=== PATIENT | male | born 2005 | race Caucasian/White ===

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

== ENCOUNTER 2025-01-10 18:50 | Emergency (ER) | payer SELFPAY ==
[2025-01-10 18:58] VITALS: BP 131/91; PULSE 84; RESP 18; TEMP 36.6; O2SAT 98; BMI 19.5
--- OUTSIDE RECORDS SUMMARY | 2025-01-10 19:01 | XMS_ITS | Encounter Summary ---
Author Organization [facility] Address [address] [place] [address] Care Team Providers Care Labor Crew Supervisor Name Role Phone Charu Woods MD Primary Care Provider +1- [phone] Encounter Details Date Type Department Care Team (Latest Contact Info) Description 2005 Outpatient Historical [facility] Medicine- [address] [phone] Perez Layton MD [address] [place] [address] Candidiasis of Mouth (Primary Dx) Social History Tobacco Use Types Packs/Day Years Used Date Smoking Tobacco: Never Assessed Sex and Gender Information Value Date Recorded Sex Assigned at Not on file Legal Sex Male 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
--- OUTSIDE RECORDS SUMMARY | 2025-01-10 19:01 | XMS_ITS | Encounter Summary ---
Author Organization [facility] Address [address] [place] [address] Care Team Providers Care Forming Machine Tender Name Role Phone Charu Woods MD Primary Care Provider +1- [phone] Encounter Details Date Type Department Care Team (Latest Contact Info) Description 2005 Outpatient Historical [facility] Medicine- [address] [phone] Abigail Reyes MD [address] [place] [address] Routine child health exam (Primary Dx) Social History Tobacco Use Types Packs/Day Years Used Date Smoking Tobacco: Never Assessed Sex and Gender Information Value Date Recorded Sex Assigned at Not on file Legal Sex Male 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
--- OUTSIDE RECORDS SUMMARY | 2025-01-10 19:01 | XMS_ITS | Encounter Summary ---
Author Organization [facility] Address [address] [place] [address] Care Team Providers Care Air Moving Technician Name Role Phone Charu Woods MD Primary Care Provider +1- [phone] Encounter Details Date Type Department Care Team (Latest Contact Info) Description 2005 Outpatient Historical [facility] Medicine- [address] [phone] Perez Layton MD [address] [place] [address] Routine Child Health Exam (Primary Dx) Social History Tobacco Use Types Packs/Day Years Used Date Smoking Tobacco: Never Assessed Sex and Gender Information Value Date Recorded Sex Assigned at Not on file Legal Sex Male 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
--- OUTSIDE RECORDS SUMMARY | 2025-01-10 19:01 | XMS_ITS | Encounter Summary ---
Author Organization [facility] Address [address] [place] [address] Care Team Providers Care Early Childhood Teacher Name Role Phone Charu Woods MD Primary Care Provider +1- [phone] Encounter Details Date Type Department Care Team (Latest Contact Info) Description 05/28/2006 Outpatient Historical [facility] Medicine- [address] [phone] Perez Layton MD [address] [place] [address] Pneumonia, Organism Unspecified (Primary Dx) Social History Tobacco Use Types Packs/Day Years Used Date Smoking Tobacco: Never Assessed Sex and Gender Information Value Date Recorded Sex Assigned at Not on file 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
--- OUTSIDE RECORDS SUMMARY | 2025-01-10 19:01 | XMS_ITS | Encounter Summary ---
Author Organization [facility] Address [address] [place] [address] Care Team Providers Care Electrotype Finisher Name Role Phone Charu Woods MD Primary Care Provider +1- [phone] Encounter Details Date Type Department Care Team (Latest Contact Info) Description 2005 Outpatient Historical 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
--- OUTSIDE RECORDS SUMMARY | 2025-01-10 19:01 | XMS_ITS | Encounter Summary ---
Author Organization [facility] Address [address] 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
--- OUTSIDE RECORDS SUMMARY | 2025-01-10 19:01 | XMS_ITS | Encounter Summary ---
Author Organization [facility] Address [address] [place] [address] Care Team Providers Care Fast Food Cook Name Role Phone Charu Woods MD Primary Care Provider +1- [phone] Encounter Details Date Type Department Care Team (Latest Contact Info) Description 03/27/2006 Outpatient Historical [facility] Orthopedics- 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
--- OUTSIDE RECORDS SUMMARY | 2025-01-10 19:01 | XMS_ITS | Encounter Summary ---
Author Organization [facility] Address [address] [place] [address] Care Team Providers Care Conservation Educator Name Role Phone Charu Woods MD Primary Care Provider +1- [phone] Encounter Details Date Type Department Care Team (Late st Contact Info) Description 2005 Inpatient Historical [facility] Yandel Portillo, DO [address] [place] [address] / JAUND NOS (Primary Dx) Social History Tobacco Use Types Packs/Day Years Used Date Smoking Tobacco: Never Assessed Sex and Gender Information Value Date Recorded Sex Assigned at Not on file Legal Sex Male 4:15 AM ROD PULLER Gender Identity Not on file Sexual Orientation Not on file documented as of this encounter Plan of Treatment Not on file documented as of this encounter Procedures Procedure Name Priority Date/Time Associated Diagnosis Comments DIFFERENTIAL, MANUAL Routine 2005 7:17 PM ROD PULLER CBC WITH DIFFERENTIAL Routine 2005 7:17 PM ROD PULLER RETICULOCYTES Routine 2005 7:17 PM ROD PULLER DIFFERENTIAL, MANUAL Routine 2005 6:12 AM ROD PULLER CBC WITH DIFFERENTIAL Routine 2005 6:12 AM ROD PULLER COMPREHENSIVE METABOLIC PANEL Routine 2005 6:12 AM ROD PULLER HEMOGLOBIN AND HEMATOCRIT Routine 2005 6:29 PM ROD PULLER HEMOGLOBIN AND HEMATOCRIT Routine 2005 12:20 PM ROD PULLER G6PD QUALITATIVE Routine 2005 12:2 0 PM ROD PULLER DIFFERENTIAL, MANUAL Routine 2005 3:37 AM ROD PULLER CBC WITH DIFFERENTIAL Routine 2005 3:37 AM ROD PULLER COMPREHENSIVE METABOLIC PANEL Routine 2005 3:37 AM ROD PULLER documented in this encounter Results * (ABNORMAL) RETICULOCYTES (2005 7:17 PM ROD PULLER) RETICULOCYTES 2.8(H) 0.5 - 1.5 % INTERFACE SYSTEM 2005 7:17 PM ROD PULLER us Oralia Major MD HEMATOLOGY ORDERABLES Final Result Performing Organization Address [facility] Co de Phone Number INTERFACE SYSTEM Refer to clinic/hospital department * (ABNORMAL) DIFFERENTIAL, MANUAL (2005 7:17 PM ROD PULLER) NEUTROPHILS, SEG 29 15 - 35 % INT ERFACE SYSTEM BANDS 4(L) 6 - 15 % INTERFACE SYSTEM LYMPHOCYTES 46 43 - 53 % INTERFAC E SYSTEM Comment:FEW REACTIVE LYMPHS MONOCYTE 9 8 - 9 % INTERFACE SYSTEM EOSINOPHILS 7(H) 0 - 3 % INTERFAC E SYSTEM MYELOCYTES 5(H) <=1 % INTERFACE SYSTEM ANISOCYTOSIS 1+(A) None Seen INTERFA CE SYSTEM SMUDGE CELLS Few(A) None Seen INTERFA CE SYSTEM PLATELET EST. Normal Normal INTERF P[place] SYSTEM RBC MORPHOLOGY Abnormal(A ) Normal INTERFACE SYSTEM 2005 7:17 PM ROD PULLER us Oralia Major MD HEMATOLOGY ORDERABLES COM F inal Result Performing Organization Address City/[facility]/ZIP Co de Phone Number INTERFACE SYSTEM Refer to clinic/hospital department * (ABNORMAL) CBC WITH DIFFERENTIAL (2005 7:17 PM ROD PULLER) WBC 21.9 9.4 - 34.0 K/ul INTERFACE SYSTEM RBC 3.92 3.60 - 6.60 Mil/ul INTERFACE SYSTEM HEMOGLOBIN 14.0(L) 14.2 - 17.2 g/dL INTERFACE SYSTEM HEMATOCRIT 39.1(L) 47.0 - 57.0 % INTER FACE SYSTEM MCV 99.7 95.0 - 118.0 Fl INTERFACE SYSTEM MCH 35.7 31.0 - 37.0 pg INTERFACE SYSTEM MCHC 35.8 31.0 - 37.0 g/dL INTERFACE SYSTEM RDW 14.3 11.0 - 14.5 % INTERF POPEYE SYSTEM PLATELETS 371 140 - 440 K/ul INTERFACE SYSTEM MPV 10.8 8.9 - 12.8 Fl INTERF POPEYE SYSTEM HEM COMMENT Smear Reviewed Automated Diff INTERFACE SYSTEM Comment: ACCURACY MAY BE AFFECTED DUE TO PLATELET CLUMPS SEEN ON SMEAR--NO CLOT WAS DETECTED IN SAMPLE. RN GERARDO WAS NOTIFIED.SS 2005 7:17 PM ROD PULLER Oralia Major MD HEMATOLOGY ORDERABLES Final Result Performing Organization Address [facility] de Phone Number INTERFACE SYSTEM Refer to clinic/hospital department * (ABNORMAL) DIFFERENTIAL, MANUAL (2005 6:12 AM ROD PULLER) NEUTROPHILS, SEG 39(H) 15 - 35 % INT ERFACE SYSTEM BANDS 1(L) 6 - 15 % INTERFACE SYSTEM LYMPHOCYTES 43 43 - 53 % INTERFAC E SYSTEM MONOCYTE 7(L) 8 - 9 % INTERFACE SYSTEM EOSINOPHILS 9(H) 0 - 3 % INTERFAC E SYSTEM BASOPHILS 1 0 - 1 % INTERFACE SYSTEM PLATELET EST. Normal Normal INTERF [place]YE SYSTEM RBC MORPHOLOGY Normal Normal INTER FACE SYSTEM 2005 6:12 AM ROD PULLER us Yandel Portillo DO HEMATOLOGY ORDERABLES COM Final Result Performing Organization Address [facility] Co de Phone Number INTERFACE SYSTEM Refer to clinic/hospital department * (ABNORMAL) CBC WITH DIFFERENTIAL (2005 6:12 AM ROD PULLER) WBC 13.8 9.4 - 34.0 K/ul INTERFACE SYSTEM RBC 4.12 3.60 - 6.60 Mil/ul INTERFACE SYSTEM HEMOGLOBIN 15.0 14.2 - 17.2 g/dL INTERFACE SYSTEM HEMATOCRIT 42.4(L) 47.0 - 57.0 % INTERFACE SYSTEM MCV 102.9 95.0 - 118.0 Fl INTERFACE SYSTEM MCH 36.4 31.0 - 37.0 pg INTERFACE SYSTEM MCHC 35.4 31.0 - 37.0 g/dL INTERFACE SYSTEM RDW 15.1(H) 11.0 - 14.5 % INTERFACE SYSTEM PLATELETS 239 140 - 440 K/ul INTERFACE SYSTEM MPV 10.7 8.9 - 12.8 Fl INTERFACE SYSTEM 2005 6:12 AM ROD PULLER Yandel Portillo DO HEMATOLOGY ORDERABLES Final Res ult INTERFACE SYSTEM Refer to clinic/hospital department * (ABNORMAL) COMPREHENSIVE METABOLIC PANEL (2005 6:12 AM ROD PULLER) GLUCOSE 101(H) 50 - 80 mg/dL INTERFACE SYSTEM BUN 4(L) 9 - 20 mg/dL INTERFACE SYSTEM CREATININE 0.4 0.2 - 0.7 mg/dL INTERFACE SYSTEM SODIUM 138 136 - 145 mEq/L INTERFACE SYSTEM POTASSIUM 4.5 3.5 - 5.0 mEq/L INTERFACE SYSTEM Comment:Specimen slightly he molyzed CO2 23 22 - 32 mmol/l INTERFACE SYSTEM CHLORIDE 111(H) 95 - 110 mEq/L INTERFACE SYSTEM CALCIUM 9.4 8.4 - 10.5 mg/dL INTERFACE SYSTEM ALKALINE PHOSPHATASE 94 46 - 321 IU/L INTERFACE SYSTEM TOTAL PROTEIN 5.8(L) 6.3 - 8.2 g/dL INTERFACE SYSTEM ALBUMIN 2.9(L) 3.5 - 5.0 g/dL INTERFACE SYSTEM AST 67(H) 17 - 59 IU/L INTERFACE SYSTEM ALT 18(L) 21 - 72 IU/L INTERFACE SYSTEM BILIRUBIN TOTAL 17.1(H) 0.6 - 11.0 mg/dL INTERFACE SYSTEM GLOBULIN (CALC) 2.9 2.4 - 3.9 g/dL INTERFACE SYSTEM ANION GAP 9 9 - 20 mEq/L INTERFACE SYSTEM ALBUMIN/GLOBULIN RATIO 1.0 1.0 - 2.3 INTERFACE SYSTEM OSMOLALITY, CALCULATED 282 275 - 295 mOsm/Kg INTERFACE SYSTEM 2005 6:12 AM ROD PULLER us Yandel Portillo DO CHEMISTRY ORDERABLES Final Resu lt Performing Organization Address [facility] Phone Number INTERFACE SYSTEM Refer to clinic/hospital department * (ABNORMAL) HEMOGLOBIN AND HEMATOCRIT (2005 6:29 PM ROD PULLER) HEMOGLOBIN 15.6 14.2 - 17.2 g/dL INTERFACE SYSTEM HEMATOCRIT 43.4(L) 47.0 - 57.0 % INTERFACE SYSTEM 2005 6:29 PM ROD PULLER us Yandel Portillo DO HEMATOLOGY ORDERABLES Final Res ult Performing Organization Address [facility] Phone Number INTERFACE SYSTEM Refer to clinic/hospital department * G6PD QUALITATIVE (2005 12:20 PM ROD PULLER) G6PD QUAL Normal INTERFACE SYSTEM 2005 12:2 0 PM ROD PULLER us Yandel Portillo DO CHEMISTRY ORDERABLES COM Final Result Performing Organization Address [facility] Phone Number INTERFACE SYSTEM Refer to clinic/hospital department * (ABNORMAL) HEMOGLOBIN AND HEMATOCRIT (2005 12:20 PM ROD PULLER) HEMOGLOBIN 15.5 14.2 - 17.2 g/dL INTERFACE SYSTEM HEMATOCRIT 42.8(L) 47.0 - 57.0 % INTERFACE SYSTEM 2005 12:2 0 PM ROD PULLER us Yandel Portillo DO HEMATOLOGY ORDERABLES Final Res ult Performing Organization Address [facility] Phone Number INTERFACE SYSTEM Refer to clinic/hospital department * (ABNORMAL) COMPREHENSIVE METABOLIC PANEL (2005 3:37 AM ROD PULLER) GLUCOSE 111(H) 50 - 80 mg/dL INTERFACE SYSTEM BUN 8(L) 9 - 20 mg/dL INTERFACE SYSTEM CREATININE 0.5 0.2 - 0.7 mg/dL INTERFACE SYSTEM SODIUM 139 136 - 145 mEq/L INTERFACE SYSTEM POTASSIUM 3.9 3.5 - 5.0 mEq/L INTERFACE SYSTEM Comment:Specimen slightly he molyzed CO2 23 22 - 32 mmol/l INTERFACE SYSTEM CHLORIDE 109 95 - 110 mEq/L INTERFACE SYSTEM CALCIUM 9.6 8.4 - 10.5 mg/dL INTERFACE SYSTEM ALKALINE PHOSPHATASE 102 46 - 321 IU/L INTERFACE SYSTEM TOTAL PROTEIN 6.1(L) 6.3 - 8.2 g/dL INTERFACE SYSTEM ALBUMIN 3.1(L) 3.5 - 5.0 g/dL INTERFACE SYSTEM AST 58 17 - 59 IU/L INTERFACE SYSTEM ALT 22 21 - 72 IU/L INTERFACE SYSTEM BILIRUBIN TOTAL 21.2(H) 0.6 - 11.0 mg/dL INTERFACE SYSTEM GLOBULIN (CALC) 3.0 2.4 - 3.9 g/dL INTERFACE SYSTEM ANION GAP 11 9 - 20 mEq/L INTERFACE SYSTEM ALBUMIN/GLOBULIN RATIO 1.0 1.0 - 2.3 INTERFACE SYSTEM OSMOLALITY, CALCULATED 285 275 - 295 mOsm/Kg INTERFACE SYSTEM 2005 3:37 AM ROD PULLER us Yandel Portillo DO CHEMISTRY ORDERABLES Final Resu lt Performing Organization Address [facility] Phone Number INTERFACE SYSTEM Refer to clinic/hospital department * (ABNORMAL) DIFFERENTIAL, MANUAL (2005 3:37 AM ROD PULLER) NEUTROPHILS, SEG 43(H) 15 - 35 % INT ERFACE SYSTEM BANDS 2(L) 6 - 15 % INTERFACE SYSTEM LYMPHOCYTES 36(L) 43 - 53 % INTERFAC E SYSTEM ATYPICAL LYMPHOCYTE 5(H) <=0 % INTERFACE SYSTEM MONOCYTE 9 8 - 9 % INTERFACE SYSTEM EOSINOPHILS 5(H) 0 - 3 % INTERFAC E SYSTEM PLATELET EST. Normal Normal INTERF [place]YE SYSTEM RBC MORPHOLOGY Normal Normal INTER FACE SYSTEM POLYCHROMASIA 1+(A) None Seen INTERF POPEYE SYSTEM 2005 3:37 AM ROD PULLER us Yandel Portillo DO HEMATOLOGY ORDERABLES COM Final Result Performing Organization Address [facility] Phone Number INTERFACE SYSTEM Refer to clinic/hospital department * (ABNORMAL) CBC WITH DIFFERENTIAL (2005 3:37 AM ROD PULLER) WBC 11.6 9.4 - 34.0 K/ul INTERFACE SYSTEM Comment: WBC Corrected for Nucleated RBC'S RBC 4.55 3.60 - 6.60 Mil/ul INTERFACE SYSTEM HEMOGLOBIN 16.6 14.2 - 17.2 g/dL INTERFACE SYSTEM HEMATOCRIT 45.8(L) 47.0 - 57.0 % INTERFACE SYSTEM MCV 100.7 95.0 - 118.0 Fl INTERFACE SYSTEM MCH 36.5 31.0 - 37.0 pg INTERFACE SYSTEM MCHC 36.2 31.0 - 37.0 g/dL INTERFACE SYSTEM RDW 15.4(H) 11.0 - 14.5 % INTERFACE SYSTEM PLATELETS 244 140 - 440 K/ul INTERFACE SYSTEM MPV 10.7 8.9 - 12.8 Fl INTERFACE SYSTEM NEUTROPHILS 52.6 42.2 - 75.2 % INTERFACE SYSTEM LYMPHOCYTES 31.8(L) 43.0 - 53.0 % INTERFACE SYSTEM MONOCYTES 9.2(H) 8.0 - 9.0 % INTERFACE SYSTEM EOSINOPHILS 6.1 0.0 - 7.0 % INTERFACE SYSTEM BASOPHILS 0.3 0.0 - 1.0 % INTERFACE SYSTEM NEUTROPHIL ABSOLUTE 6.1 2.0 - 8.0 K/uL INTERFACE SYSTEM LYMPHOCYTE ABSOLUTE 3.7 1.2 - 4.0 K/ul INTERFACE SYSTEM MONOCYTE ABSOLUTE 1.1(H) 0.1 - 0.6 K/ul INTERFACE SYSTEM EOSINOPHIL ABSOLUTE 0.7 0.0 - 0.7 K/ul INTERFACE SYSTEM BASOPHILS ABSOLUTE 0.0 0.0 - 0.2 K/ul INTERFACE SYSTEM NRBC 1 <=1 INTERFACE SYSTEM 2005 3:37 AM ROD PULLER us Yandel Portillo DO HEMATOLOGY ORDERABLES Final Res ult INTERFACE SYSTEM Refer to clinic/hospital department documented in this encounter Visit Diagnoses Diagnosis Unspecified and jaundice- Primary documented in this encounter Care Teams Conservation Educator Relationship Specialty Start Date End Date Charu Woods MD PCP - General Family Practice 02/22/10 documented as of this encounter
--- OUTSIDE RECORDS SUMMARY | 2025-01-10 19:01 | XMS_ITS | Encounter Summary ---
Author Organization [facility] Address [address] [place] [address] Care Team Providers Care Primer And Powder Canning Leader Name Role Phone Charu Woods MD Primary Care Provider +1- [phone] Encounter Details Date Type Department Care Team (Latest Contact Info) Description 03/02/2006 Outpatient Historical [facility] Medicine- [address] [phone] Perez Layton MD [address] [place] [address] Routine Child Health Exam (Primary Dx) Social History Tobacco Use Types Packs/Day Years Used Date Smoking Tobacco: Never Assessed Sex and Gender Information Value Date Recorded Sex Assigned at Not on file Legal Sex Male 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
--- OUTSIDE RECORDS SUMMARY | 2025-01-10 19:01 | XMS_ITS | Encounter Summary ---
Author Organization [facility] Address [address] [place] [address] Care Team Providers Care Flower Machine Operator Name Role Phone Charu Woods MD Primary Care Provider +1- [phone] Encounter Details Date Type Department Care Team (Latest Contact Info) Description 02/05/2006 Outpatient Historical [facility] Medicine- [address] [phone] Perez Layton MD [address] [place] [address] Acute Upper Respiratory Infections of Unspecified Site (Primary Dx) Social History Tobacco Use Types Packs/Day Years Used Date Smoking Tobacco: Never Assessed Sex and Gender Information Value Date Recorded Sex Assigned at Not on file Legal Sex Male 4:15 AM REMEDIATION CONSULTANT Gender Identity Not on file Sexual Orientation Not on file documented as of this encounter Plan of Treatment Not on file documented as of this encounter Visit Diagnoses Diagnosis Acute upper respiratory infections of unspecified site- Primary documented in this encounter Care Teams Flower Machine Operator Relationship Specialty Start Date End Date Charu Woods MD PCP - General Family Practice 02/22/10 documented as of this encounter
--- OUTSIDE RECORDS SUMMARY | 2025-01-10 19:01 | XMS_ITS | Encounter Summary ---
Author Organization [facility] Address [address] [place] [address] Care Team Providers Care Engineering Job Titles Name Role Phone Charu Woods MD Primary Care Provider +1- [phone] Encounter Details Date Type Department Care Team (Latest Contact Info) Description 2005 Outpatient Historical [facility] Medicine- [address] [phone] Perez Layton MD [address] [place] [address] Routine Child Health Exam (Primary Dx) Social History Tobacco Use Types Packs/Day Years Used Date Smoking Tobacco: Never Assessed Sex and Gender Information Value Date Recorded Sex Assigned at Not on file Legal Sex Male 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
--- OUTSIDE RECORDS SUMMARY | 2025-01-10 19:01 | XMS_ITS | Encounter Summary ---
Author Organization [facility] Address [address] [place] [address] Care Team Providers Care Vulcanizer Name Role Phone Charu Woods MD Primary Care Provider +1- [phone] Encounter Details Date Type Department Care Team (Latest Contact Info) Description 2005 Outpatient Historical [facility] Medicine- [address] [phone] Abigail Reyes MD [address] [place] [address] JAUNDICE NOS (Primary Dx) Social History Tobacco Use Types Packs/Day Years Used Date Smoking Tobacco: Never Assessed Sex and Gender Information Value Date Recorded Sex Assigned at Not on file Legal Sex Male 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
--- OUTSIDE RECORDS SUMMARY | 2025-01-10 19:01 | XMS_ITS | Encounter Summary ---
Author Organization [facility] Address [address] [place] [address] Care Team Providers Care Storekeeper Steward Name Role Phone Charu Woods MD Primary Care Provider +1- [phone] Encounter Details Date Type Department Care Team (Latest Contact Info) Description 06/21/2006 Outpatient Historical [facility] Medicine- [place] [address] [place] [address] Keena Layton MD [address] [place] [address] Acute Upper Respiratory Infections of Unspecified Site (Primary Dx) Social History Tobacco Use Types Packs/Day Years Used Date Smoking Tobacco: Never Assessed Sex and Gender Information Value Date Recorded Sex Assigned at Not on file Legal Sex Male 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
--- OUTSIDE RECORDS SUMMARY | 2025-01-10 19:01 | XMS_ITS | Encounter Summary ---
Author Organization [facility] Address [address] [place] [address] Care Team Providers Care Roll Tester Name Role Phone Charu Woods MD Primary Care Provider +1- [phone] Encounter Details Date Type Department Care Team (Latest Contact Info) Description 03/12/2006 Outpatient Historical [facility] Medicine- [address] [place] [phone] Perez Layton MD [address] [place] [address] Other and Unspecified Noninfectious Gastroenteritis and Colitis (Primary Dx) Social History Tobacco Use Types Packs/Day Years Used Date Smoking Tobacco: Never Assessed Sex and Gender Information Value Date Recorded Sex Assigned at Not on file Legal Sex Male 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
--- OUTSIDE RECORDS SUMMARY | 2025-01-10 19:01 | XMS_ITS | Encounter Summary ---
Author Organization [facility] Address [address] [place] [address] Care Team Providers Care Clinical Dermatologist Name Role Phone Charu Woods MD Primary Care Provider +1- [phone] Encounter Details Date Type Department Care Team (Latest Contact Info) Description 05/30/[address] 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
--- OUTSIDE RECORDS SUMMARY | 2025-01-10 19:01 | XMS_ITS | Encounter Summary ---
Author Organization [facility] Address [address] [place] [address] Care Team Providers Care Truck Service Manager Name Role Phone Charu Woods MD Primary Care Provider +1- [phone] Encounter Details Date Type Department Care Team (Latest Contact Info) Description 2005 Outpatient Historical [facility] Medicine- [address] [phone] Abigail Reyse MD [address] [place] [address] Routine Child Health Exam (Primary Dx) Social History Tobacco Use Types Packs/Day Years Used Date Smoking Tobacco: Never Assessed Sex and Gender Information Value Date Recorded Sex Assigned at Not on file Legal Sex Male 4:15 AM COMMISSIONING AGENT Gender Identity Not on file Sexual Orientation Not on file documented as of this encounter Plan of Treatment Not on file documented as of this encounter Visit Diagnoses Diagnosis Routine child health exam- Primary Routine infant or child health check documented in this encounter Care Teams Truck Service Manager Relationship Specialty Start Date End Date Charu Woods MD PCP - General Family Practice 02/22/10 documented as of this encounter
--- OUTSIDE RECORDS SUMMARY | 2025-01-10 19:01 | XMS_ITS | Encounter Summary ---
Author Organization [facility] Address [address] [place] [address] Care Team Providers Care Sock Drier Name Role Phone Charu Woods MD Primary Care Provider +1- [phone] Encounter Details Date Type Department Care Team (Latest Contact Info) Description 06/29/2006 Outpatient Historical [facility] Family Medicine- [address] [phone] Perez Layton MD [address] [place] [address] Routine Child Health Exam (Primary Dx) Social History Tobacco Use Types Packs/Day Years Used Date Smoking Tobacco: Never Assessed Sex and Gender Information Value Date Recorded Sex Assigned at Not on file Legal Sex Male 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
--- OUTSIDE RECORDS SUMMARY | 2025-01-10 19:01 | XMS_ITS | Encounter Summary ---
Author Organization [facility] Address [address] [place] [address] Care Team Providers Care Electron Beam Welder Setter Name Role Phone Charu Woods MD Primary Care Provider +1- [phone] Encounter Details Date Type Department Care Team (Latest Contact Info) Description 04/18/2006 Outpatient Historical [facility] Medicine- [address] [phone] Perez Layton MD [address] [place] [address] Acute Upper Respiratory Infections of Unspecified Site (Primary Dx) Social History Tobacco Use Types Packs/Day Years Used Date Smoking Tobacco: Never Assessed Sex and Gender Information Value Date Recorded Sex Assigned at Not on file Legal Sex Male 

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
--- OUTSIDE RECORDS SUMMARY | 2025-01-10 19:02 | XMS_ITS | Encounter Summary ---
Author Organization [facility] Address [address] [place] [address] Care Team Providers Care Turbo Operator Name Role Phone Charu Woods MD Primary Care Provider +1- [phone] Encounter Details Date Type Department Care Team (Latest Contact Info) Description 07/09/2006 Outpatient Historical [facility] Medicine- [address] [phone] Perez Layton MD [address] [place] [address] Acute Bronchiolitis due to Respiratory Syncytial Virus (RSV) (Primary Dx); Hypoxemia Social History Tobacco Use Types Packs/Day Years Used Date Smoking Tobacco: Never Assessed Sex and Gender Information Value Date Recorded Sex Assigned at Not on file Legal Sex Male 4:15 AM GLOBAL MARKETING INTERN Gender Identity Not on file Sexual Orientation Not on file documented as of this encounter Plan of Treatment Not on file documented as of this encounter Visit Diagnoses Diagnosis Acute bronchiolitis due to respiratory syncytial virus (RSV)- Primary Hypoxemia documented in this encounter Care Teams Turbo Operator Relationship Specialty Start Date End Date Charu Woods MD PCP - General Family Practice 02/22/10 documented as of this encounter
--- OUTSIDE RECORDS SUMMARY | 2025-01-10 19:02 | XMS_ITS | Encounter Summary ---
Author Organization [facility] Address [address] [place] [address] Care Team Providers Care Porcelain Enamel Installer Name Role Phone Charu Woods MD Primary Care Provider +1- [phone] Encounter Details Date Type Department Care Team (Latest Contact Info) Description 08/22/2006 Outpatient Historical [facility] Medicine- [address] [phone] Perez Layton MD [address] [place] [address] Acute Upper Respiratory Infections of Unspecified Site (Primary Dx) Social History Tobacco Use Types Packs/Day Years Used Date Smoking Tobacco: Never Assessed Sex and Gender Information Value Date Recorded Sex Assigned at Not on file Legal Sex Male 4:15 AM EXTRUDER OPERATOR HELPER Gender Identity Not on file Sexual Orientation Not on file documented as of this encounter Plan of Treatment Not on file documented as of this encounter Visit Diagnoses Diagnosis Acute upper respiratory infections of unspecified site- Primary documented in this encounter Care Teams Porcelain Enamel Installer Relationship Specialty Start Date End Date Charu Woods MD PCP - General Family Practice 02/22/10 documented as of this encounter
--- OUTSIDE RECORDS SUMMARY | 2025-01-10 19:02 | XMS_ITS | Encounter Summary ---
Author Organization [facility] Address [address] [place] [address] Care Team Providers Care Starch And Prosize Mixer Name Role Phone Charu Woods MD Primary Care Provider +1- [phone] Encounter Details Date Type Department Care Team (Latest Contact Info) Description 07/10/2006 Outpatient Historical [facility] Medicine- [address] [phone] Perez Layton MD [address] [place] [address] Acute Bronchiolitis due to Respiratory Syncytial Virus (RSV) (Primary Dx) Social History Tobacco Use Types Packs/Day Years Used Date Smoking Tobacco: Never Assessed Sex and Gender Information Value Date Recorded Sex Assigned at Not on file Legal Sex Male 4: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
--- OUTSIDE RECORDS SUMMARY | 2025-01-10 19:02 | XMS_ITS | Encounter Summary ---
Author Organization [facility] Address [address] [place] [address] Care Team Providers Care Band And Cuff Cutter Name Role Phone Charu Woods MD Primary Care Provider +1- [phone] Encounter Details Date Type Department Care Team (Late st Contact Info) Description 05/29/2007 Outpatient Historical [facility] Family Medicine- [address] [phone] Perez Layton MD [address] [place] [address] Social History Tobacco Use Types Packs/Day Years Used Date Smoking Tobacco: Never Assessed Sex and Gender Information Value Date Recorded Sex Assigned at Not on file Legal Sex Male 4:15 AM MANAGER CONTROL Gender Identity Not on file Sexual Orientation Not on file documented as of this encounter Plan of Treatment Not on file documented as of this encounter Visit Diagnoses Not on filedocumented in this encounter Care Teams Band And Cuff Cutter Relationship Specialty Start Date End Date Charu Woods MD PCP - General Family Practice 02/22/10 documented as of this encounter
--- OUTSIDE RECORDS SUMMARY | 2025-01-10 19:02 | XMS_ITS | Clinical Summary ---
Author Organization [facility] Address [address] [place] [address] Care Team Providers Care Bobbin Winder Name Role Phone Charu Woods MD Primary Care Provider +1- [phone] Allergies No known active allergies Medications pediatric multivitamins-ir on Tablet, ChewableIndicati ons:Encounter for routine child health examination without abnormal findings Take 2 Tablets by mouth daily. 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 Hearing problem of both ears 06/16/2017 Second hand tobacco smoke exposure 08/24/2015 Immunizations Immunization Administration Dates Next Due (ADACEL/BOOSTRIX)(10 YR UP) TDAP VACCINE, 0.5ML, IM 05/18/2017 (GARDASIL 9)(9-45 YRS) HUMAN PAPILLOMAVIRUS VACCINE, TYPES 6, 11, 16, 18, 31, 33, 45, 52, 58, NONAVALENT (9VHPV), 2 OR 3 DOSE, IM 05/18/2017 (HAVRIX/VAQTA)(12 MO-18 YRS) HEPATITIS A VACCINE 0.5 ML PED/ADOL 2 DOSE, IM 05/18/2017 (M-M-R II/PRIORIX)(12 MO UP) MEASLES, MUMPS AND RUBELLA VIRUS VACCINE, 0.5 ML IM/SUBCUT 06/29/2006 (VARIVAX)(12 MOS UP)VARICELL A VIRUS VACCINE (PF) 0.5 ML, SUB CUT 06/29/2006 DTaP IPV Vaccine 4-6 Yr IM VFC 11/18/2009 Dt Dtp Dtap Vaccine 12/18/2006, 6,2005,07/24,2005 HIB, Unspecified Formulation 06/29/2006, 2005,2005,07/24,2005 Hepatitis A Vaccine Ped Adol IM 2 Dose VFC 11/18/2009 Hepatitis B Vaccine 2005, 6,2005,05/26 IPV/OPV 2005, 6,2005,05/26 MMR Vaccine SQ VFC 11/18/2009 Meningococcal A Conjugate Vaccine IM 05/18/2017 Pneumococcal 7-valent conjug ate vaccine IM 06/29/2006,2005,2005,07/24 Varicella Vaccine Live Sq VFC 11/18/2009 Social History Tobacco Use Types Packs/Day Years Used Date Smoking Tobacco: Passive Smo ke Exposure - Never Smoker Smokeless Tobacco: Never Alcohol Use Standard Drinks/Week Comments No 0 (1 standard drink = 0.6 oz pur e alcohol) Sex and Gender Information Value Date Recorded Sex Assigned at Not on file Legal Sex Male 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 Gender Identity Not on file Sexual Orientation Not on file Last Filed Vital Signs Vital Sign Reading Time Taken Comments Blood Pressure 112/59 09/13/2018 10:33 PM CDT Pulse 67 09/13/2018 10:33 PM CDT Temperature 36.7 C (98 F) 09/13/2018 10:33 PM CDT Respiratory Rate 18 09/13/2018 10:33 PM CDT Oxygen Saturation 97% 09/13/2018 10:33 PM CDT Inhaled Oxygen Concentration - - Weight 50.3 kg (111 lb) 09/13/2018 8:34 PM CDT Height 141.5 cm (4' 7.7 ) 05/18/2017 1:26 PM PHARMACIST AIDE Body Mass Index - - Plan of Treatment Health Maintenance Due Date Last Done Comments CHLAMYDIA SCREENING (ANNUAL) 11-24 YEARS 2016 HPV VACCINES (2 - Male 2-dos e series) 11/15/2017 05/18/2017 INFLUENZA VACCINE (#1) 2024 DTAP/TDAP/TD VACCINES (7 - T d or Tdap) 05/18/2027 05/18/2017, 11/18/2009, 12/18/2006, Additional history exists HEPATITIS B VACCINES Completed 2005, 2005, 2005, Additional history exists Insurance [facility] [employer] [facility] [place] Care Teams Bobbin Winder Relationship Specialty Start Date End Date Charu Woods MD PCP - General Family Practice 02/22/10
--- OUTSIDE RECORDS SUMMARY | 2025-01-10 19:02 | XMS_ITS | Encounter Summary ---
Author Organization [facility] Address [address] [place] [address] Care Team Providers Care Software Developer Consultant Name Role Phone Charu Woods MD Primary Care Provider +1- [phone] Encounter Details Date Type Department Care Team (Latest Contact Info) Description 12/18/2006 Outpatient Historical [facility] Family Medicine- [address] [phone] Keena Layton MD [address] [place], [place] [id number] Routine Child Health Exam (Primary Dx) Social History Tobacco Use Types Packs/Day Years Used Date Smoking Tobacco: Never Assessed Sex and Gender Information Value Date Recorded Sex Assigned at Not on file Legal Sex Male 4:15 AM 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
--- OUTSIDE RECORDS SUMMARY | 2025-01-10 19:02 | XMS_ITS | Clinical Summary ---
Author Organization [employer] [facility] Address [address] [facility] Attn: Epic Prelude ADT [place] [address] Care Team Providers Care Medical Record Specialist Name Role Phone Charu Woods MD Primary Care Provider +1- [phone] Allergies No known active allergies Medications pediatric multivitamin-iro n Tablet, ChewableIndicati ons:Encounter for routine child health [...] 06/29/2006 DTaP IPV Vaccine 4-[address] [facility] 11/18/2009 Dt Dtp Dtap Vaccine 12/18/2006, 6,2005,07/24,2005 HIB, Unspecified Formulation 06/29/2006, 2005,2005,07/24,2005 Hepatitis A Vaccine Ped Adol IM [address] [facility] 11/18/2009 Hepatitis B Vaccine 2005, 6,2005,05/26 IPV/OPV 2005, 6,2005,05/[address] [facility] 11/18/2009 Meningococcal A Conjugate Vaccine IM 05/18/2017 Pneumococcal 7-valent conjug ate vaccine IM 06/29/2006,2005,2005,07/[address] Live [address] [facility] 11/18/2009 Social History Tobacco Use Types Packs/Day Years Used Date Smoking Tobacco: Passive Smo ke Exposure - Never Smoker Smokeless Tobacco: Never Alcohol Use Standard Drinks/Week Comments No 0 (1 standard drink = 0.6 oz pur e alcohol) Sex and Gender Information Value Date Recorded Sex Assigned at Not on file Legal Sex Male 4:32 AM ENERGY AND SUSTAINABILITY MANAGER Gender Identity Not on file Sexual Orientation Not on file Last Filed Vital Signs Vital Sign [place] Time Taken Comments Blood Pressure 112/59 09/13/2018 10:33 PM CDT Pulse 67 09/13/2018 10:33 PM CDT Temperature 36.7 C (98 F) 09/13/2018 10:33 PM CDT Respiratory Rate 18 09/13/2018 10:33 PM CDT Oxygen Saturation - - Inhaled Oxygen Concentration - - Weight 50.3 kg (111 lb) 09/13/2018 8:34 PM CDT Height 141.5 cm (4' 7.7 ) 05/18/2017 1:26 PM ENERGY AND SUSTAINABILITY MANAGER Body Mass Index - - Plan of Treatment Health Maintenance Due Date Last Done Comments CHLAMYDIA SCREENING (ANNUAL) 11-24 YEARS 2016 HPV VACCINES (2 - Male 2-dos e series) 11/15/2017 05/18/2017 INFLUENZA VACCINE (#1) 2024 DTAP/TDAP/TD VACCINES (7 - T d or Tdap) 05/18/2027 05/18/2017, 11/18/2009, 12/18/2006, Additional history exists HEPATITIS B VACCINES Completed 2005, 2005, 2005, Additional history exists Care Teams Medical Record Specialist Relationship Specialty Start Date End Date Charu Woods MD [address] [place] [address] PCP - General Family Practice 02/22/10
--- OUTSIDE RECORDS SUMMARY | 2025-01-10 19:02 | XMS_ITS | Encounter Summary ---
Author Organization [facility] Address [address] [place] [address] Care Team Providers Care Hoof Trimmer Name Role Phone Charu Woods MD Primary Care Provider [phone]- [phone] Encounter Details Date Type Department Care Team (Late st Contact Info) Description 01/16/[address] 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
--- OUTSIDE RECORDS SUMMARY | 2025-01-10 19:02 | XMS_ITS | Encounter Summary ---
Author Organization [facility] Address [address] [place]: Epic Prelude ADT [place] [address] Care Team Providers Care Bandoleer Straightener Stamper Name Role Phone Charu Woods MD Primary Care Provider [phone]- [phone] Encounter Details Date Type Department Care Team (Late st Contact Info) Description 07/10/2006 Outpatient Historical Perez Layton MD [address] [place] [address] Social History Tobacco Use Types Packs/Day Years Used Date Smoking Tobacco: Never Assessed Sex and Gender Information Value Date Recorded Sex Assigned at Not on file Legal Sex Male 4:15 AM DIRECTOR MORTGAGE Gender Identity Not on file Sexual Orientation Not on file documented as of this encounter Plan of Treatment Not on file documented as of this encounter Visit Diagnoses Not on filedocumented in this encounter Care Teams Bandoleer Straightener Stamper Relationship Specialty Start Date End Date Charu Woods MD PCP - General Family Practice 02/22/10 documented as of this encounter
[2025-01-10] MEDS: morphine 4 mg/mL SDV 1 mL 6 MG IVP (19:13)
[2025-01-10] MEDS: ondansetron 2 mg/ML SDV 2 mL 4 MG IVP (19:13)
[2025-01-10 20:24] VITALS: BP 145/69; PULSE 75; RESP 18; O2SAT 96
[2025-01-10] MEDS: morphine 4 mg/mL SDV 1 mL IVP (20:55)
[2025-01-10 21:22] VITALS: BP 137/72; PULSE 77; RESP 16; O2SAT 96
[2025-01-10] MEDS: oxyCODONE-APAP 5-325 mg Tablet 1 TAB PO (21:29)
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
== END 2025-01-10 21:33 | disposition home or self-care (01) ==
PROVIDERS: Emergency Provider Student in an Organized Health Care Education/Training Program
DX: S82.831A Other fracture of upper and lower end of right fibula, initial encounter for closed fracture (principal); S80.212A Abrasion, left knee, initial encounter; S80.211A Abrasion, right knee, initial encounter; S40.812A Abrasion of left upper arm, initial encounter; S40.811A Abrasion of right upper arm, initial encounter; V28.49XA Other motorcycle driver injured in noncollision transport accident in traffic accident, initial encounter
CPT/HCPCS: 73610; 96374; 96375; 96376; 99284; J2270; J2405; J9999

== ENCOUNTER → 2025-01-12 11:22 | Outpatient (BNVA) | payer MEDICAID, SELFPAY | PROVIDERS: Visit Provider Podiatrist Foot & Ankle Surgery | DX: S82.831A Other fracture of upper and lower end of right fibula, initial encounter for closed fracture (principal); T07.XXXA Unspecified multiple injuries, initial encounter; S93.431A Sprain of tibiofibular ligament of right ankle, initial encounter; V29.99XA Rider (driver) (passenger) of other motorcycle injured in unspecified traffic accident, initial encounter | CPT/HCPCS: 99204 ==

== ENCOUNTER 2025-01-23 06:26 | Day surgery (SDC) | payer MEDICAID, SELFPAY ==
[2025-01-23] VITALS (11 sets, daily range): BP systolic 100–147; BP diastolic 42–87; PULSE 52–92; RESP 16–19; TEMP 36.2–36.7; O2SAT 96–100; BMI 22.4
--- NOTE | 2025-01-23 07:25 | ANES.PREANE2 ---
Pre-Anesthetic Assessment Height/Weight: Height 6 ft Weight 165 lb Temp Pulse Resp BP Pulse Ox O2 Del Method 97.7 F 80 18 124/72 100 Room Air 01/23/25 06:44 01/23/25 06:44 01/23/25 06:44 01/23/25 06:44 01/23/25 06:44 01/23/25 06:44 Preop Diagnosis: Right ankle fracture Operation Date: 01/23/25 08:00 Proposed Procedures p ORIF distal fibula(Right) - Maximus Major DPM s Stabilization Distal Tibiofibular Joint ORIF Syndesmosis(Right) - Maximus Major DPM Was Beta Eri taken within 24 hours: N/A Was Clonidine taken within 24 hours: N/A Last intake: Intake Last Liquid Date 01/22/25 Last Liquid Time 23:00 Last Solid Date 01/22/25 Last Solid Time 13:00 Social Tobacco and No alcohol Exam alert, oriented x 3, clear to auscultation bilaterally and regular rate & rhythm Airway Submandibular: within normal limits Cervical ROM: within normal limits Mallampati: Class I Dentition: full Anesthetic Plan ASA status: 2 Anesthesia: General and Regional (specify below) Other: No prior issues with anesthesia NPO since yesterday evening Current smoker Denies any cardiac issues METs greater than 4 Plan for general anesthesia with peripheral nerve block Medications/Allergies Home Medications ?Medication ?Instructions ?Recorded ?Confirmed ?Last Taken ?Type oxycodone-acetaminophen 5 mg-325 1 tab PO TID PRN pain #20 tabs 01/10/25 01/23/25 01/19/25 Rx mg tablet (Percocet) Allergies Allergy/AdvReac Type Severity Reaction Status Date / Time No Known Allergies Allergy Verified 01/23/25 06:40 Current Medications Generic Name Dose Route Start Last Admin Trade Name Freq PRN Reason Stop Dose Admin Sodium Chloride 1,000 mls @ 30 mls/hr 01/23/25 06:45 01/23/25 06:56 Sodium Chloride 0.9% IV 01/24/25 06:44 30 mls/hr .Q24H DEREK Administration PFSH Anesthesia Social History (Updated 01/12/25 @ 11:33 by Andre Elmore LPN) Smoking and tobacco/nicotine status: current every day tobacco/nicotine user Alcohol intake: never Substance/Drug Use: never
--- NOTE | 2025-01-23 07:44 | W.PM.OPSUD ---
Surgery/Procedure H&P Update DATE OF PROCEDURE: January 23, 2025 DATE H&P PERFORMED: 01/12/25 H&P UPDATE INFORMATION: I have reviewed H&P completed within last 30 days, I have examined patient prior to procedure, No changes to prior documentation and Risks and benefits of the procedure reviewed PREOP DIAGNOSIS: Right ankle fracture PLANNED PROCEDURE: Operation Date: 01/23/25 08:00 Proposed Procedures p ORIF distal fibula(Right) - Maximus Major DPM s Stabilization Distal Tibiofibular Joint ORIF Syndesmosis(Right) - Maximus Major DPM
[2025-01-23] MEDS: ceFAZolin 2,000 mg SDV 2000 MG IVP (07:57)
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
--- NOTE | 2025-01-23 08:14 | ANES.PROC ---
Anesthesia Procedures Procedure/Date: 01/23/25 Nerve Block ^: Nerve Block 1: Main Anesthesia: general anesthesia Time Out Performed: Yes Consent: requested by attending/covering physician and from patient Laterality: Right Nerve block location: popliteal Anesthesia monitors applied: pulse oximetry, EKG, BP cuff and oxygen Nerve block position: supine Anesthetic Used: ropivicaine 0.5% Amount of anesthesia used (mL): 30 Ultrasound used to: recognize landmarks Nerve Stimulator Used?: Yes Interscalene/Femoral BLK: other needle (pjunk 4inch) Injection: neg aspiration of heme Patient Tolerated Procedure: well Complications: none
[2025-01-23] MEDS: fentaNYL 50 mcg/mL INJ 2mL IVP (09:05)
[2025-01-23] MEDS: HYDROcodone-acetaminophen 10-325 mg Tablet 1 TAB PO (09:35)
--- NOTE | 2025-01-23 10:02 | ANE.PACU2 ---
Inpatient post-anesthesia follow up: Airway intact: Yes Vital signs: Temperature 98.1 F Pulse Rate 74 Respiratory Rate 18 Blood Pressure 127/74 Pulse Oximetry 99 Oxygen Delivery Me thod Room Air Oxygen Flow Rate Fraction of Inspir ed Oxygen Hydration adequate: Yes Nausea and vomiting: No Pain level: 1 Mental status: Baseline
== END 2025-01-23 10:02 | disposition home or self-care (01) ==
PROVIDERS: Visit Provider Podiatrist Foot & Ankle Surgery
PROC: (CPT 27829; principal; 2025-01-23 07:50)
PROC: (CPT 27829; 2025-01-23 07:50)
DX: S82.831A Other fracture of upper and lower end of right fibula, initial encounter for closed fracture (principal); S93.431A Sprain of tibiofibular ligament of right ankle, initial encounter; V29.99XA Rider (driver) (passenger) of other motorcycle injured in unspecified traffic accident, initial encounter; F17.200 Nicotine dependence, unspecified, uncomplicated; Z79.891 Long term (current) use of opiate analgesic
CPT/HCPCS: 27829; 27792; 73600; 76000; C1713; J0690; J1100; J2250; J2405; J2704; J3010; J7030; J9999

== ENCOUNTER → 2025-02-04 14:05 | Outpatient (BNVA) | payer MEDICAID, SELFPAY | PROVIDERS: Visit Provider Podiatrist Foot & Ankle Surgery | DX: S82.831A Other fracture of upper and lower end of right fibula, initial encounter for closed fracture (principal); Z98.890 Other specified postprocedural states; S93.431A Sprain of tibiofibular ligament of right ankle, initial encounter; X58.XXXA Exposure to other specified factors, initial encounter | CPT/HCPCS: 73610 ==

== ENCOUNTER → 2025-03-05 13:26 | Outpatient (BNVA) | payer MEDICAID, SELFPAY | PROVIDERS: Visit Provider Podiatrist Foot & Ankle Surgery | DX: Z98.890 Other specified postprocedural states (principal); S93.431D Sprain of tibiofibular ligament of right ankle, subsequent encounter; X58.XXXD Exposure to other specified factors, subsequent encounter | CPT/HCPCS: 73610 ==

== ENCOUNTER → 2025-04-02 14:10 | Outpatient (BNVA) | payer MEDICAID, SELFPAY | PROVIDERS: Visit Provider Podiatrist Foot & Ankle Surgery | DX: Z98.890 Other specified postprocedural states (principal); S93.431D Sprain of tibiofibular ligament of right ankle, subsequent encounter; X58.XXXD Exposure to other specified factors, subsequent encounter | CPT/HCPCS: 73610 ==